=== PATIENT | male | born 1930 | race Caucasian/White ===

== ENCOUNTER 2017-01-03 08:00 | Outpatient (CLI) | payer MEDICARE, OTHER | END 2017-01-03 08:01 | DX: I10 Essential (primary) hypertension (principal); R73.01 Impaired fasting glucose; E29.1 Testicular hypofunction; C61 Malignant neoplasm of prostate; E55.9 Vitamin D deficiency, unspecified ==

== ENCOUNTER 2017-12-03 08:58 | Outpatient (CLI) | payer MEDICARE, OTHER | END 2017-12-03 08:59 | disposition home or self-care (01) | LOC: LAB.F 08:58 | PROVIDERS: ATTEND Family Medicine | DX: C61 Malignant neoplasm of prostate (principal) | CPT/HCPCS: 36415; 84153 ==

== ENCOUNTER 2018-04-11 08:08 | Outpatient (CLI) | payer MEDICARE, OTHER ==
[2018-04-11 11:36] LABS: CALCIUM 8.6 mg/dL (8.5-10.3); CREATININE 0.8 mg/dL (0.6-1.2)
== END 2018-04-11 08:09 | disposition home or self-care (01) ==
LOC: LAB.F 08:08
PROVIDERS: ATTEND Family Medicine
DX: I10 Essential (primary) hypertension (principal)
CPT/HCPCS: 36415; 80048

== ENCOUNTER 2018-12-20 08:24 | Emergency (ER) | payer MEDICARE, OTHER ==
[2018-12-20] MEDS ORDERED: CARBAMIDE PEROXIDE 6.5% OTIC DROPS LEFTEAR STA (09:01)
--- NOTE | 2018-12-20 09:04 | ED Physician Documentation ---
PD HPI HEENT - Stated complaint Stated Complaint: L EAR PX - Chief complaint Chief Complaint: Heent - History obtained from History obtained from: Patient - History of Present Illness Timing - onset: Last night Timing - details: Still present Location: Left ear Associated symptoms: No: Fever, Congestion Similar symptoms before: Diagnosis - Additional information Additional information: The patient is an 88-year-old male who presents with a "plugged left ear." His symptoms started about 1 week ago. Last night he developed vertigo, which is a new symptom for him. He currently denies any pain in his ear, and his vertigo resolved after the episode last night. He denies fever, headache, nausea or vomiting. He denies history of similar symptoms in the past. Review of Systems Constitutional: denies: Fever Eyes: denies: Irritation Ears: reports: Other ("Plugged left ear."). denies: Ear pain Nose: denies: Congestion Throat: denies: Sore throat Cardiac: denies: Chest pain / pressure Respiratory: denies: Dyspnea, Cough GI: denies: Abdominal Pain, Nausea, Vomiting Skin: denies: Rash Musculoskeletal: denies: Neck pain Neurologic: denies: Headache PD PAST MEDICAL HISTORY - Past Medical History Past Medical History: Yes Endocrine/Autoimmune: None HEENT: Glaucoma - Past Surgical History Past Surgical History: Yes - Allergies Allergies/Adverse Reactions: Allergies Allergy/AdvReac Type Severity Reaction Status Date / Time No Known Drug Allergies Allergy Verified 12/20/18 08:35 - Social History Does the pt smoke?: No Smoking Status: Never smoker Does the pt drink ETOH?: No Does the pt have substance abuse?: No - Immunizations Immunizations are current?: Yes PD ED PE NORMAL - Vitals Vital signs reviewed: Yes (hypertensive) - General General: Alert and oriented X 3, Well developed/nourished - HEENT HEENT: Atraumatic, EOMI, Pharynx benign, Other (Left tympanic membrane is obscured by cerumen deep within the ear canal. Right tympanic membrane is partially visualized and is clear.) - Neck Neck: Supple, no meningeal sign, No adenopathy - Cardiac Cardiac: RRR - Respiratory Respiratory: No respiratory distress, Clear bilaterally - Derm Derm: No rash - Neuro Neuro: Alert and oriented X 3, No motor deficit, Normal speech Results - Vitals Vitals: Oxygen O2 Source Room air PD MEDICAL DECISION MAKING - ED course Complexity details: re-evaluated patient, considered differential, d/w patient, d/w family ED course: The patient's presentation is significant for cerumen impaction in the left ear canal. He had a brief episode of vertigo last night that may be related to the cerumen impaction. His presentation does not suggest a central nervous system source of vertigo. Treatment in the emergency department included removal of the cerumen impaction after first instilling Debrox in the ear canal, and then flushing with normal s surinder. I discussed with him and his methods to decrease risk of similar cerumen impactions in the future, as well as potentially worrisome signs or symptoms that should prompt reevaluation in the emergency department. Departure - Departure Disposition: 01 Home, Self Care Clinical Impression: Excessive cerumen in both ear canals Condition: Stable Instructions: ED Earwax Removal Follow-Up: ZEKE MULLER MD [Primary Care Provider] - Comments: You can use hydrogen peroxide to help clean earwax from your ear canals. Follow-up with your primary physician, or return to the emergency department, if you develop recurrent ear plugging, vertigo, or otherwise worsening symptoms. Discharge Date/Time: 12/20/18 11:19
[2018-12-20 11:14] VITALS: BP 172/96
== END 2018-12-20 11:19 | disposition home or self-care (01) ==
LOC: ED 08:24
DX: H61.22 Impacted cerumen, left ear (principal)
CPT/HCPCS: 69210; 99283